=== PATIENT | female | born 1960 | race Caucasian/White ===

== ENCOUNTER 2017-11-14 18:35 | Emergency (ER) | payer BC ==
[2017-11-14 18:35] VITALS: O2SAT 98
[2017-11-14 18:55] VITALS: BP 154/95; PULSE 85; RESP 18; TEMP 97
[2017-11-14 19:02] LABS: APPEARANCE,URINE Clear; BILIRUBIN,URINE NEGATIVE (NEGATIVE); COLOR,URINE Yellow; GLUCOSE, URINE (UA) NEGATIVE (NEGATIVE); KETONES,URINE NEGATIVE (NEGATIVE); LEUKOCYTE ESTERASE ,URINE NEGATIVE (NEGATIVE); NITRATE,URINE NEGATIVE (NEGATIVE); OCCULT BLOOD,URINE 2+ (NEG-TRACE); PH,URINE 5.5; UROBILINOGEN,URINE 0.2 (0.2-1.0 EU)
[2017-11-14 19:15] LABS: BACTERIA TRACE (< 1+); CRYSTALS NEGATIVE (0-3 AVE/HPF); EPITHELIAL CELLS 0-1 (SQUAMOUS); WBC,URINE NEGATIVE (0-5AV/HPF)
== END 2017-11-14 19:30 | disposition home or self-care (01) ==
LOC: ED 18:35
DX: M54.5 Low back pain (principal)
CPT/HCPCS: 81001; 99282